=== PATIENT | female | born 1970 | race Two or more races ===

== ENCOUNTER 2017-11-28 10:25 | Emergency (ER) | payer OTHER ==
[~2017-11-28] VITALS: Ht 165.1 cm; Wt 67.1 kg
[2017-11-28] MEDS ORDERED: ACTIGALL300 MG PO (10:45)
== END 2017-11-28 14:21 | disposition home or self-care (01) ==
LOC: ER 10:25
DX: T78.49XA Other allergy, initial encounter (principal); R60.0 Localized edema

== ENCOUNTER 2017-11-29 10:57 | Outpatient (CLI) | payer OTHER ==
[~2017-11-29 10:57] MED LIST: ACTIGALL300 MG PO
== END 2017-11-29 11:18 | disposition home or self-care (01) ==
LOC: SONOGRAMA 10:57
DX: N92.0 Excessive and frequent menstruation with regular cycle (principal); N84.0 Polyp of corpus uteri; Z12.31 Encounter for screening mammogram for malignant neoplasm of breast; N64.4 Mastodynia

== ENCOUNTER 2018-03-09 13:29 | Emergency (ER) | payer OTHER ==
[~2018-03-09] VITALS: Ht 165.1 cm; Wt 65.8 kg
== END 2018-03-09 16:23 | disposition home or self-care (01) ==
LOC: ER 13:29
DX: D69.6 Thrombocytopenia, unspecified (principal)

== ENCOUNTER 2019-03-23 19:05 | Emergency (ER) | payer OTHER ==
[~2019-03-23] VITALS: Ht 165.1 cm; Wt 68.0 kg
[2019-03-23] MEDS ORDERED: AMITIZA8 MCG (19:15)
== END 2019-03-24 00:03 | disposition home or self-care (01) ==
LOC: ER 19:05
DX: K59.09 Other constipation (principal)

== ENCOUNTER 2019-03-24 06:14 | Inpatient (IN) | payer OTHER ==
[~2019-03-24] VITALS: Ht 165.1 cm; Wt 69.9 kg
[~2019-03-24 06:14] MED LIST changes: +AMITIZA8 MCG
--- NOTE | 2019-03-24 06:26 | NUR ---
SE RECIBE FEMINA ALERTA Y ORIENTADA POR SELMA ESFERAS, AMBULANDO. REFIERE DOLOR ABDOMINAL, NAUSEAS, DISTENSION ABDOMINAL Y CONSTIPACION DE 8 STOUT.
--- NOTE | 2019-03-24 07:37 | NUR ---
EVALUADO POR EN TURNO QUIEN COLOCA ORDEN MEDICA. SE ORIENTA PACIENTE Y FAMILIAR SOBRE TRATAMIENTO ORDENADO. AMBOS REFIEREN COMPRENDER. SE COLECTAN MUESTRAS DE LABORATORIOS LAS CUALES SE ROTULAN Y ENVIAN PARA ANALISIS. SE ADMINISTRA MEDICAMENTO ORDENADO DEMEROL 50MG IM EL CUAL ES ADMINISTRADO BAJO MEDIDAS ASEPTICAS. PACIENTE NO PRESENTA REACCION ADVERSA. PACIENTE REHUSA MAGNESIUM CITRATE BOTTLE 300ML PO, CEPHULAC 20G PO, GLYCERIN ADULTO 2.1GM,MINERAL OIL 30ML PO. SE NOTIFICA ESTUDIO DE CT ABD/PELV W/WO CONTRAST.
--- NOTE | 2019-03-24 15:34 | NUR ---
SE RECIBE PACIENTE ALERTA Y ORIENTADA EN CAMA CON VENOPUNCION PATENTE LIBNRE DE EDEMA Y ERRITEMA, PACIENTE CON TUBO NASOGASTRICO POR FOSAL NASAL IZQUIERDA A SUCCION INTERMITENTE. PACIENTE SONSULTADA CON EL DR. KWAN BACA. SE JEN A PACIENTE EN CAMA BAJO OBSERVACION POR CAMBIOS EN SUC ONDICION.
[2019-03-31] MEDS ORDERED: PEPCID AC20 MG PO (16:22)
[2019-03-31] MEDS ORDERED: Ursodiol 300MG CAPSU PO (16:22)
[2019-03-31] MEDS ORDERED: INTESTINEX680 M1 PO (16:22)
[2019-03-31] MEDS ORDERED: AMITIZA8 MCG PO (16:22)
[2019-03-31] MEDS ORDERED: KAOPECTATE240 MG PO (16:22)
== END 2019-03-31 18:20 | disposition home or self-care (01) | DRG 392 ==
LOC: ER 06:14 → SURH 16:06 → MEDJ 16:06 → SURH 19:39 → MEDJ 19:42 → SURH 20:48
PROVIDERS: ADMIT Internal Medicine
PROC: 0D9670Z Drainage of Stomach with Drainage Device, Via Natural or Artificial Opening (ICD-10-PCS; 2019-03-24)
PROC: 4A19X1Z Monitoring of Respiratory Capacity, External Approach (ICD-10-PCS; principal; 2019-03-29)
DX: K59.09 Other constipation (principal); J98.11 Atelectasis; K83.09 Other cholangitis; E78.5 Hyperlipidemia, unspecified

== ENCOUNTER 2019-11-15 08:06 | Outpatient (CLI) | payer OTHER ==
[~2019-11-15 08:06] MED LIST changes: +AMITIZA8 MCG PO; +INTESTINEX680 M1 PO; +KAOPECTATE240 MG PO; +PEPCID AC20 MG PO; +Ursodiol 300MG CAPSU PO
== END 2019-11-15 08:14 | disposition home or self-care (01) ==
LOC: SONOGRAMA 08:06
DX: C22.0 Liver cell carcinoma (principal)

== ENCOUNTER 2020-02-22 11:31 | Emergency (ER) | payer OTHER ==
[~2020-02-22] VITALS: Ht 165.1 cm; Wt 65.8 kg
[2020-02-23] MEDS ORDERED: CRESTOR10 MG (09:39)
== END 2020-02-22 14:51 | disposition home or self-care (01) ==
LOC: ER 11:31
DX: B34.9 Viral infection, unspecified (principal); Z20.822 Contact with and (suspected) exposure to COVID-19

== ENCOUNTER 2020-02-23 08:38 | Emergency (ER) | payer OTHER ==
[~2020-02-23] VITALS: Ht 165.1 cm; Wt 63.5 kg
[2020-02-23] MEDS ORDERED: CRESTOR10 MG (09:39)
== END 2020-02-23 15:00 | disposition home or self-care (01) ==
LOC: ER 08:38
DX: K29.60 Other gastritis without bleeding (principal); R10.13 Epigastric pain

== ENCOUNTER 2020-03-16 08:41 | Emergency (ER) | payer OTHER ==
[~2020-03-16] VITALS: Ht 165.1 cm; Wt 63.5 kg
[~2020-03-16 08:41] MED LIST changes: +CRESTOR10 MG
== END 2020-03-16 18:42 | disposition home or self-care (01) ==
LOC: ER 08:41
DX: K52.9 Noninfective gastroenteritis and colitis, unspecified (principal); U07.1 COVID-19; Z03.818 Encounter for observation for suspected exposure to other biological agents ruled out

== ENCOUNTER 2021-08-25 12:06 | Outpatient (CLI) | payer OTHER | END 2021-08-25 12:09 | disposition home or self-care (01) | LOC: RAD 12:06 | PROVIDERS: ATTEND Surgery | DX: K56.690 Other partial intestinal obstruction (principal); K59.01 Slow transit constipation; K56.600 Partial intestinal obstruction, unspecified as to cause ==

== ENCOUNTER 2023-01-19 22:06 | Emergency (ER) | payer OTHER ==
[~2023-01-19] VITALS: Ht 165.1 cm; Wt 71.2 kg
[2023-01-20 00:31] LABS: HEMATOCRIT 37.5 % (36.0-45.00); HEMOGLOBIN 13.1 g/dL (12.0-15.00); MEAN CELL VOLUME 94.4 fL (80.00-100.00); MEAN CORPUSCULAR HGB CONC 34.9 g/dl (32.0-36.0); PLATELET COUNT 250 K/uL (150-450); RED BLOOD COUNT 3.97 M/uL (4.00-6.00); RED CELL DISTRIBUTION WIDTH 13.2 % (11.5-14.5)
[2023-01-20 00:33] LABS: BILIRUBIN TOTAL 0.37 mg/dL (0.3-1.2); BILIRUBIN,CONJUGATED 0.11 mg/dL (0.0-0.2); BILIRUBIN,UNCONJUGATED 0.26 mg/dL (0.0-0.6); CALCIUM 9.8 mg/dL (8.5-10.1); CREATININE SERUM 1.04 mg/dL (0.55-1.02); GFR 55.65; POTASSIUM 3.83 mEq/L (3.5-5.1)
[2023-01-20 01:25] LABS: URINE APPEARANCE Clear; URINE BILIRRUBIN Negative (NEGATIVE); URINE BLOOD Negative; URINE COLOR Yellow; URINE GLUCOSE Negative (NEGATIVE); URINE LEUKOCYTE Negative; URINE NITRATE Negative; URINE PROTEIN Negative (NEGATIVE); URINE UROBILINOGEN 0.2 E.U./dl
[2023-01-20 01:54] LABS: URINE BACTERIA 27.7 uL (0.0-1933); URINE EPITHELIAL CELLS 3.2 uL (0.0-38.8); URINE RBC 9.1 uL (0.0-20.8); URINE WBC 3.7 uL (0.0-23.2)
[2023-01-20] MEDS ORDERED: ONDANSETRON ODT4 MG PO (03:06)
[2023-01-20] MEDS ORDERED: PEPCID40 MG PO (03:06)
== END 2023-01-20 03:51 ==
LOC: ER
PROVIDERS: General Practice
DX: K52.89 Other specified noninfective gastroenteritis and colitis (principal); Z88.0 Allergy status to penicillin; Z88.2 Allergy status to sulfonamides; Z91.013 Allergy to seafood; K29.70 Gastritis, unspecified, without bleeding

== ENCOUNTER 2023-01-30 09:46 | Emergency (ER) | payer OTHER ==
[~2023-01-30] VITALS: Ht 165.1 cm; Wt 70.3 kg
[~2023-01-30 09:46] MED LIST changes: +ONDANSETRON ODT4 MG PO; +PEPCID40 MG PO
[2023-01-30 11:21] LABS: HEMATOCRIT 40.2 % (36.0-45.00); HEMOGLOBIN 13.7 g/dL (12.0-15.00); MEAN CELL VOLUME 93.5 fL (80.00-100.00); MEAN CORPUSCULAR HEMOGLOBIN 31.9 pg (27.00-32.0); MEAN CORPUSCULAR HGB CONC 34.1 g/dl (32.0-36.0); PLATELET COUNT 278 K/uL (150-450); RED CELL DISTRIBUTION WIDTH 13.1 % (11.5-14.5)
[2023-01-30 11:32] LABS: CALCIUM 10.1 mg/dL (8.5-10.1); CREATININE SERUM 0.82 mg/dL (0.55-1.02); GFR 73.21; POTASSIUM 3.85 mEq/L (3.5-5.1)
== END 2023-01-30 14:38 | disposition home or self-care (01) ==
LOC: ER 09:47
DX: B34.9 Viral infection, unspecified (principal); R53.81 Other malaise; Z20.822 Contact with and (suspected) exposure to COVID-19; Z88.0 Allergy status to penicillin; Z88.2 Allergy status to sulfonamides; Z91.013 Allergy to seafood

== ENCOUNTER → 2023-12-26 | Emergency (ER) | payer OTHER ==
[~2023-12-26] VITALS: Ht 165.1 cm; Wt 71.7 kg
[~2023-12-26] MED LIST changes: +0.9 % SODIUM CHLORIDE 1,000 ML IV STA; +ADULT LOW DOSE81 M1 PO; +CRESTOR10 MG PO; +URSO250 MG PO; +ZETIA10 MG PO
[2023-12-26 10:38] LABS: HEMATOCRIT 40.8 % (36.0-45.00); HEMOGLOBIN 14.2 g/dL (12.0-15.00); MEAN CELL VOLUME 93.9 fL (80.00-100.00); MEAN CORPUSCULAR HEMOGLOBIN 32.6 pg (27.00-32.0); MEAN CORPUSCULAR HGB CONC 34.7 g/dl (32.0-36.0); PLATELET COUNT 322 K/uL (150-450); RED BLOOD COUNT 4.35 M/uL (4.00-6.00); RED CELL DISTRIBUTION WIDTH 13.4 % (11.5-14.5)
[2023-12-26 11:27] LABS: CALCIUM 10.3 mg/dL (8.5-10.1); CREATININE SERUM 0.9 mg/dL (0.55-1.02); GFR 65.5; POTASSIUM 4.32 mEq/L (3.5-5.1)
== END | disposition home or self-care (01) ==
LOC: ER 09:14
PROVIDERS: Emergency Medicine
DX: B34.9 Viral infection, unspecified (principal); J00 Acute nasopharyngitis [common cold]; Z20.822 Contact with and (suspected) exposure to COVID-19; Z88.0 Allergy status to penicillin; Z88.2 Allergy status to sulfonamides; Z91.013 Allergy to seafood

== ENCOUNTER 2024-10-22 13:04 | Emergency (ER) | payer OTHER ==
[~2024-10-22] VITALS: Ht 165.1 cm; Wt 68.0 kg
[~2024-10-22 13:04] MED LIST changes: -0.9 % SODIUM CHLORIDE 1,000 ML IV STA
[2024-10-22] MEDS ORDERED: DIPHENHYDRAMINE HCL 50 MG/ML VIAL 1ML IV ONE (16:00)
[2024-10-22] MEDS ORDERED: METHYLPREDNISOLONE SOD SUCC 125 MG VIAL IM SCH (16:00)
== END 2024-10-22 17:46 ==
LOC: ER 13:26
DX: T78.40XA Allergy, unspecified, initial encounter (principal); X58.XXXA Exposure to other specified factors, initial encounter; Z88.2 Allergy status to sulfonamides; Z88.0 Allergy status to penicillin; Z91.013 Allergy to seafood